=== PATIENT | female | born 1975 | race Caucasian/White ===

== ENCOUNTER 2019-11-06 14:59 | Observation (INO) | payer BC ==
--- OUTSIDE RECORDS SUMMARY | 2019-11-06 15:13 | XMS REPORT | Clinical Summary ---
:1975 Author Organization [facility] Address [address] [place] [id number] Care Team Providers Name Role Phone Bria Zhao Primary Care Provider Allergies No Known Active Allergies Medications No known medications Active Problems Not on file Family History Medical History Relation Name Comments CABG/Stent Father Relation Name Status Comments Father Alive Mother Alive Social History Tobacco Use Types Packs/Day Years Used Date Never Smoker Alcohol Use Drinks/Week oz/Week Comments Yes 2 Glasses of wine 2.0 Sex Assigned at Date Recorded Not on file Last Filed Vital Signs Not on file Plan of Treatment Health Maintenance Due Date Last Done Comments CERVICAL CANCER SCREENING 09/06/1996 INFLUENZA VACCINE 10/14/2019 Results Not on fileafter 11/05/2018 Advance Directives For more information, please contact: [phone] 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
--- OUTSIDE RECORDS SUMMARY | 2019-11-06 15:13 | XMS REPORT | Continuity of Care Document ---
:1975 Author Organization [facility] t Address [address] [place] [address] Care Team Providers Name Role Phone [facility] Primary Care Physician Problems This patient has no known problems. Allergies, Adverse Reactions, Alerts This patient has no known allergies or adverse reactions. Family History Family Member Diagnosis Comments Start Date Stop Date Source Natural father CABG/Stent [facility] Social History Social Habit Start Date Stop Date Quantity Comments Source Sex Assigned At [facility] ethodist Alcohol intake 2016-12-21 2016-12-21 Current drinker [employer] 00:00:00 00:00:00 of alcohol (finding) Smoking Status Start Date Stop Date Source Never smoker [facility] Medications This patient has no known medications. Procedures This patient has no known procedures. Plan of Care Planned Activity Planned Date Details Comments Source Future Scheduled 2019-10-14 INFLUENZA VACCINE [facility] Test 00:00:00 [code = INFLUENZA VACCINE] Future Scheduled 1996-09[birth year] [facility] neoplasm of cervix (procedure) [code = 690316065] Results This patient has no known results.
[2019-11-06 15:58] VITALS: BMI 24.3
[2019-11-06] MEDS ORDERED: MORPHINE 2 MG/ML SYR IV PRN (16:19)
[2019-11-06] MEDS: dexAMETHasone 4 MG/ML VIAL IV SCH (17:04)
[2019-11-06] MEDS: IBUPROFEN 400 MG TAB PO PRN ×2 (17:09→23:13)
[2019-11-06] MEDS ORDERED: CEFTRIAXONE 1000 MG/VIAL ONE (17:12)
[2019-11-06] MEDS ORDERED: dexAMETHasone 4 MG/ML VIAL ONE ×3 (17:13→23:22)
[2019-11-06] MEDS ORDERED: IBUPROFEN 400 MG TAB ONE ×2 (17:13→23:21)
[2019-11-06] MEDS ORDERED: WATER FOR INJ,STERILE 0 ML ONE (17:14)
[2019-11-06] MEDS: CEFTRIAXONE/SWI 1gm 1 GM/10 ML SYR IVP SCH (17:15)
[2019-11-06] MEDS ORDERED: CEFTRIAXONE/SWI 1gm 1 GM/10 ML SYR ONE (17:26)
[2019-11-06] MEDS: D5 0.45 NS 1,000 ML IV SCH (20:00)
[2019-11-07] MEDS: dexAMETHasone 4 MG/ML VIAL IV SCH ×3 (00:58→16:24)
[2019-11-07] MEDS ORDERED: dexAMETHasone 4 MG/ML VIAL ONE ×3 (01:13→16:34)
[2019-11-07] MEDS ORDERED: D5 0.45 NS 1,000 ML IV ONE ×2 (02:08→16:34)
[2019-11-07] MEDS: D5 0.45 NS 1,000 ML IV SCH ×2 (04:58→16:24)
[2019-11-07] MEDS: IBUPROFEN 400 MG TAB PO PRN ×3 (09:31→20:25)
[2019-11-07] MEDS: CEFTRIAXONE/SWI 1gm 1 GM/10 ML SYR IVP SCH (09:32)
[2019-11-07] MEDS ORDERED: CEFTRIAXONE/SWI 1gm 1 GM/10 ML SYR ONE (09:39)
[2019-11-07] MEDS ORDERED: IBUPROFEN 400 MG TAB ONE ×3 (09:39→20:30)
--- NOTE | 2019-11-07 12:23 | P.PN ---
Date of Service: 11/07/19 HD 1 for acute epiglottis. Patient was seen briefly around 7AM as she was ambulating to the restroom. She stated her throat was mildly improved but still having moderate pain and globus sensation. NAD. No stridor or increased work of breathing. No retractions. General exam was less acutely ill appearing compared to yesterday. Dx: Acute epiglottitis. Continued high risk of airway obstruction. Plan: Continue ICU level care for this morning. Continue CLD. Consider downgrade this afternoon if improving. No COVID testing is warrented in this patient due to prior negative COVID test and no symptoms suggestive of COVID and the presence of epiglottitis with high risk of airway obstructive with any manipulation of her upper airway. Discussed contraindications of COVID testing with nursing staff this morning. Discharge planning is pending. Typically duration of hospitalization is 3-5 days with transition to PO Augmentin when tolerating PO well. Care coordination: I spoke with case management regarding transition to inpatient status given planned duration of stay. She was unsure if the patient warranted inpatient staus but would get back to me. I explained that epiglottis is a life threatening condition and that from a medical standpoint, close monitoring and care is warranted.
--- NOTE | 2019-11-07 20:22 | PN ---
Interim History: The patient is hospital day 1 with admission for acute epiglottitis with risk of ai rway obstruction. She was admitted yesterday evening and started on IV Rocephin, IV fluids, IV stero ids, and clear liquid diet. Due to high risk of airway obstruction, she was placed under ICU status. She reports that last night she had approximately 10 episodes, where she felt a choking sensation, but did not feel like she had any acute worsening in her sense of breathing. She feels unable to lay flat due to worsening sensation of obstruction. She continues to have a significant globus sensatio n like something is caught in her throat. She is tolerating clear liquids without significant diffic ulty. Physical Examination: The patient is sitting upright in bed without stridor, increased work of breathing or use of accessor y muscles. Her vitals signs are stable. She is alert and oriented. Her head and face are symmetric . Her neck is flat and smooth with full range of motion. Assessment: Acute epiglottitis, currently stable without respiratory distress. Plan: Due to her stable status over the last 24 hours from a respiratory standpoint, we will plan to downgrade her to a regular room. Transfer orders are in progress and plan was communicated with the charge nurse. I discussed advancing the patient's diet, but she is fearful and feels she would not tolerate a full or thickened liquid diet at this time. We will continue her clear liquid diet order, but she is cleared from a medical standpoint to attempt other consistencies if desired. Standard tr eatment for epiglottitis includes 5 days of Rocephin. We will tentatively plan for a 3-5 day admission pending further clinical progression and stabilization. At this time, the need for intubat ion is decreasing. SUSANNE/MODL Voice ID: [id number] Report ID: [id number]
[2019-11-08] MEDS: dexAMETHasone 4 MG/ML VIAL IV SCH ×2 (02:19→09:33)
[2019-11-08] MEDS: D5 0.45 NS 1,000 ML IV SCH ×2 (02:20→12:00)
[2019-11-08] MEDS: CEFTRIAXONE/SWI 1gm 1 GM/10 ML SYR IVP SCH (09:33)
--- NOTE | 2019-11-08 14:18 | PN ---
Date of Progress Note: 11/08/2019 Time Seen: 1 p.m. Subjective: Interim History: This is hospital day 2 for Ms. Guardado, who was admitted with acute epig lottitis and risk of airway obstruction. She has now received 3 doses of ceftriaxone by IV and dexam ethasone. She reports that last night she was able to tolerate approximately 30 degrade recline in o rder to sleep, but continues to have some tickling sensations in her throat. She is tolerating clear liquids much more easily than yesterday and is interested in a trial of more advanced diet. She is not currently having any active symptoms of bleeding, her pain is decreasing. Objective: The patient appears more at ease, slightly reclined in bed with no active stridor, sterto r, increased work of breathing or use of accessory muscles. Her voice is less muffled compared to . Assessment: Acute epiglottitis with risk of airway obstruction, improving. Plan: We will plan to discontinue her IV fluids, IV steroids, IV antibiotics, and advance her diet t lily. She is encouraged to ambulate in the hallways. If she continues to have symptomatic improveme nt, we will plan for discharge tomorrow morning. We will also plan for an indirect laryngoscopy exam of her epiglottis to confirm physical findings consistent with clinical symptoms. SUSANNE/OSCAR Voice ID: [id number] Report ID: [id number]
[2019-11-08] MEDS: CALCIUM CARBONATE CHEW 500MG TAB PO PRN (20:47)
[2019-11-08 22:49] VITALS: O2SAT 98
[2019-11-09] MEDS: CALCIUM CARBONATE CHEW 500MG TAB PO PRN (04:09)
[2019-11-09 08:26] VITALS: BP 130/65; TEMP 98.7
[2019-11-09] MEDS ORDERED: CEFTRIAXONE 1000 MG/VIAL IM ONE (09:56)
--- NOTE | 2019-11-09 21:36 | DS ---
Date of Admission: 11/06/2019 Date of Discharge: 11/09/2019 Admission Diagnosis: Acute epiglottitis with high risk for airway obstruction. Discharge Diagnosis: Acute epiglottitis with high risk for airway obstruction with significant clinical improvement. Hospital Course: The patient was admitted urgently from the clinic with exam findings and history consistent with acute epiglottitis. Due to high risk for airway obstruction, she was admitted for ICU status. She was treated with IV ceftriaxone and dexamethasone by IV with IV fluids and was kept on clear liquid diet for approximately 36 hours. On Sunday evening, she was stable with improvement in pain and toleration of her secretions, and was downgraded to a floor status. She received a total of 3 doses of IV ceftriaxone by hospital 3. She received a fourth dose of intramuscular ceftriaxone on the morning of the . The patient reported that she continued to have some difficulty swallowing, but was able to tolerate purees and small bites of solid food. She was tolerating liquids with only minimal difficulty. She continued to have mild pain with burning sensation when eating anything with pepper or other irritants. She reported significant improvement in her tolerance of her own secretions. On the day of discharge examination, the patient is in no acute distress. She is alert and oriented. She has no stridor, stertor, increased work of breathing, or use of accessory muscle use. An indirect mirror laryngoscopy and oral exam are performed. The lips, floor of mouth, teeth, gums, oral tongue, base of tongue, uvula, palate, and tonsils are all unremarkable. The epiglottis is visualized using a mirror. There is moderate edema and mild erythema of the epiglottis with a 3-4 mm shallow ulceration with white eschar on the left tip of the epiglottis. There is significant improvement in resolution of the pooling of secretions within the hypopharynx. The vocal cords are not well visualized, but there is significant improvement in the space between the laryngeal surface of the epiglottis and the posterior pharyngeal wall. Given her clinical improvement and stability, she appears stable for discharge with appropriate precautions. Discharge Diet: As tolerated. I recommend continue copious clear liquids with thickened liquids, purees, and solids as tolerated. Discharge Activity: As tolerated. I recommend the patient make arrangements for several days of rest and recovery at home prior to returning to her full work schedule. There are no restrictions in terms of specific activities or bathing. Followup Instructions: The patient should follow up in mid to late week, this week, with Dr. Keene and can contact Dr. Keene's office to schedule that followup. Discharge Medications: Augmentin 800 mg via solution due to continued difficulty swallowing and Medrol Dosepak to aid in continued control of swelling. Discharge Instructions: The patient is strongly cautioned to contact Dr. Keene as soon as possible or return to the emergency room if she has any worsening in her swallowing, throat pain, or develops any difficulty breathing. She appears to understand the instructions and agrees to the proposed treatment plan. ELMER Voice ID: [id number] Report ID: [id number] [email or web address]
== END 2019-11-09 12:41 | disposition home or self-care (01) ==
LOC: ERHOLD 14:59 → 4TH 11-07 20:13
PROVIDERS: ADMIT Otolaryngology; ATTEND Otolaryngology
PROC: 0CJS8ZZ Inspection of Larynx, Via Natural or Artificial Opening Endoscopic (ICD-10-PCS; principal; 2019-11-06)
DX: J05.10 Acute epiglottitis without obstruction (principal); R03.0 Elevated blood-pressure reading, without diagnosis of hypertension
CPT/HCPCS: 31505; G0379; J0696 ×3; J7799 ×4; G0378 ×5